=== PATIENT | male | born 1975 | race Two or more races ===

== ENCOUNTER 2019-04-17 20:58 | Emergency (ER) | payer SELFPAY ==
[2019-04-17 21:01] VITALS: BP 117/74
--- NOTE | 2019-04-17 21:12 | ER Report ---
History and Physical Time Seen By MD: 21:10 Hx. of Stated Complaint: DRUNK AND PEEING IN A MOTEL PARKING LOT HPI/ROS CHIEF COMPLAINT: Longterm clearance, alcohol intoxication HISTORY OF PRESENT ILLNESS: This is a 44-year-old male. Unresponsive at this time. Please brought him in for [facility] clearance. When they were called to the area, complaintant had said he had been drinking from a bottle. Urinating in the parking lot. When police arrived he was leaning against a building not responding. No obvious evidence of injuries. Other than smelling of urine, no evidence of vomiting at the time. He is not responding to any my questions right now, not conscious REVIEW OF SYSTEMS: Unable to obtain Unable To Obtain Past Medical: Unable to Obtain/Update Reviewed Nurses Notes: Yes Constitutional Vital Sign - Last 24 Hours 04/17/19 21:01 Temp 97.8 Pulse 68 Resp 18 B/P (MAP) 117/74 Pulse Ox 90 O2 Delivery Room Air Physical Exam General Appearance: Unconscious Eyes: Pupils are equal, round. Reactive to light. Has some injection. ENT: Mucous membranes are moist. Normal oral mucosa. Normal tympanic membranes and canals. Neck: Midline trachea. Respiratory: Lungs are clear to auscultation. Cardiovascular: Regular rate and rhythm. No murmurs, gallops or rubs. Normal peripheral perfusion. Gastrointestinal: Abdomen is soft. Nondistended. Normal active bowel sounds. Neurological: Unconscious, no response to verbal or painful stimuli Skin: Warm and dry. No obvious injuries, lacerations, abrasions Musculoskeletal: No obvious injuries noted or deformities. DIFFERENTIAL DIAGNOSIS: After history and physical exam, differential diagnosis was considered for unresponsive male, likely due to alcohol intoxication but unsure if there is other problems. We'll check labs, IV with fluids, CT scan of the head and cervical spine. Medical Decision Making Data Points Result Diagram: 04/17/19212504/17/192125 Laboratory Hematology Test 04/17/19 21:26 04/17/19 21:31 Red Blood Count 5.77 M/uL (4.00-5.60) Mean Corpuscular Volume 89.8 fL (80.0-96.0) Mean Corpuscular Hemoglobin 30.9 pg (26.0-33.0) Mean Corpuscular Hemoglobin Concent 34.4 g/dL (32.0-36.0) Red Cell Distribution Width 13.3 % (11.5-14.5) Mean Platelet Volume 7.3 fL (7.2-11.1) Neutrophils (%) (Auto) 43.9 % (39.4-72.5) Lymphocytes (%) (Auto) 40.0 % (17.6-49.6) Monocytes (%) (Auto) 10.8 % (4.1-12.4) Eosinophils (%) (Auto) 4.6 % (0.4-6.7) Basophils (%) (Auto) 0.7 % (0.3-1.4) Nucleated RBC Relative Count (auto) 0.1 /100WBC Neutrophils # (Auto) 3.0 K/uL (2.0-7.4) Lymphocytes # (Auto) 2.8 K/uL (1.3-3.6) Monocytes # (Auto) 0.7 K/uL (0.3-1.0) Eosinophils # (Auto) 0.3 K/uL (0.0-0.5) Basophils # (Auto) 0.0 K/uL (0.0-0.1) Nucleated RBC Absolute Count (auto) 0.01 K/uL Sodium Level 148 mmol/L (137-145) Potassium Level 3.3 mmol/L (3.5-5.0) Chloride Level 108 mmol/L (98-107) Carbon Dioxide Level 22 mmol/L (22-30) Blood Urea Nitrogen 5 mg/dl (9-21) Creatinine 0.60 mg/dl (0.66-1.25) Glomerular Filtration Rate Calc > 60.0 Random Glucose 134 mg/dl (75-110) Calcium Level 9.3 mg/dl (8.4-10.2) Total Bilirubin 0.2 mg/dl (0.2-1.3) Aspartate Amino Transf (AST/SGOT) 57 U/L (0-35) Alanine Aminotransferase (ALT/SGPT) 75 U/L (0-56) Alkaline Phosphatase 111 U/L (0-126) Total Protein 8.3 g/dl (6.3-8.2) Albumin 4.7 g/dl (3.5-5.0) Serum Alcohol 484 mg/dl Urine Color Straw Urine Clarity Clear Urine pH 6.0 pH (4.8-9.5) Urine Specific [place] 1.002 Urine Protein Negative mg/dL (NEGATIVE) Urine Glucose (UA) Negative mg/dL (NEGATIVE) Urine Ketones Negative mg/dL (NEGATIVE) Urine Blood Negative (NEGATIVE) Urine Nitrite Negative (NEGATIVE) Urine Bilirubin Negative (NEGATIVE) Urine Urobilinogen Negative mg/dL (0.2-1.9) Urine Leukocyte Esterase Negative (NEGATIVE) Urine RBC None /HPF (0-2/HPF) Urine WBC <1 /HPF (0-5/HPF) Urine Squamous Epithelial Cells None /LPF (NONE-FEW) Urine Bacteria Negative /HPF (NONE-FEW) Urine Mucus None /HPF (NONE-FEW) Urine Opiates Screen Negative Urine Barbiturates Screen Negative Ur Tricyclic Antidepressants Screen Negative Urine Phencyclidine Screen Negative Urine Amphetamines Screen Negative Urine Benzodiazepines Screen Negative Urine Cocaine Screen Negative Urine Cannabinoids Screen Negative Chemistry Test 04/17/19 21:26 04/17/19 21:31 White Blood Count 6.9 k/uL (4.5-11.0) Red Blood Count 5.77 M/uL (4.00-5.60) Hemoglobin 17.8 g/dL (14.0-18.0) Hematocrit 51.8 % (42.0-52.0) Mean Corpuscular Volume 89.8 fL (80.0-96.0) Mean Corpuscular Hemoglobin 30.9 pg (26.0-33.0) Mean Corpuscular Hemoglobin Concent 34.4 g/dL (32.0-36.0) Red Cell Distribution Width 13.3 % (11.5-14.5) Platelet Count 353 K/uL (150-450) Mean Platelet Volume 7.3 fL (7.2-11.1) Neutrophils (%) (Auto) 43.9 % (39.4-72.5) Lymphocytes (%) (Auto) 40.0 % (17.6-49.6) Monocytes (%) (Auto) 10.8 % (4.1-12.4) Eosinophils (%) (Auto) 4.6 % (0.4-6.7) Basophils (%) (Auto) 0.7 % (0.3-1.4) Nucleated RBC Relative Count (auto) 0.1 /100WBC Neutrophils # (Auto) 3.0 K/uL (2.0-7.4) Lymphocytes # (Auto) 2.8 K/uL (1.3-3.6) Monocytes # (Auto) 0.7 K/uL (0.3-1.0) Eosinophils # (Auto) 0.3 K/uL (0.0-0.5) Basophils # (Auto) 0.0 K/uL (0.0-0.1) Nucleated RBC Absolute Count (auto) 0.01 K/uL Glomerular Filtration Rate Calc > 60.0 Calcium Level 9.3 mg/dl (8.4-10.2) Total Bilirubin 0.2 mg/dl (0.2-1.3) Aspartate Amino Transf (AST/SGOT) 57 U/L (0-35) Alanine Aminotransferase (ALT/SGPT) 75 U/L (0-56) Alkaline Phosphatase 111 U/L (0-126) Total Protein 8.3 g/dl (6.3-8.2) Albumin 4.7 g/dl (3.5-5.0) Serum Alcohol 484 mg/dl Urine Color Straw Urine Clarity Clear Urine pH 6.0 pH (4.8-9.5) Urine Specific [place] 1.002 Urine Protein Negative mg/dL (NEGATIVE) Urine Glucose (UA) Negative mg/dL (NEGATIVE) Urine Ketones Negative mg/dL (NEGATIVE) Urine Blood Negative (NEGATIVE) Urine Nitrite Negative (NEGATIVE) Urine Bilirubin Negative (NEGATIVE) Urine Urobilinogen Negative mg/dL (0.2-1.9) Urine Leukocyte Esterase Negative (NEGATIVE) Urine RBC None /HPF (0-2/HPF) Urine WBC <1 /HPF (0-5/HPF) Urine Squamous Epithelial Cells None /LPF (NONE-FEW) Urine Bacteria Negative /HPF (NONE-FEW) Urine Mucus None /HPF (NONE-FEW) Urine Opiates Screen Negative Urine Barbiturates Screen Negative Ur Tricyclic Antidepressants Screen Negative Urine Phencyclidine Screen Negative Urine Amphetamines Screen Negative Urine Benzodiazepines Screen Negative Urine Cocaine Screen Negative Urine Cannabinoids Screen Negative Toxicology Test 04/17/19 21:26 04/17/19 21:31 Serum Alcohol 484 mg/dl Urine Opiates Screen Negative Urine Barbiturates Screen Negative Ur Tricyclic Antidepressants Screen Negative Urine Phencyclidine Screen Negative Urine Amphetamines Screen Negative Urine Benzodiazepines Screen Negative Urine Cocaine Screen Negative Urine Cannabinoids Screen Negative Urinalysis Test 04/17/19 21:31 Urine Color Straw Urine Clarity Clear Urine pH 6.0 pH (4.8-9.5) Urine Specific [place] 1.002 Urine Protein Negative mg/dL (NEGATIVE) Urine Glucose (UA) Negative mg/dL (NEGATIVE) Urine Ketones Negative mg/dL (NEGATIVE) Urine Blood Negative (NEGATIVE) Urine Nitrite Negative (NEGATIVE) Urine Bilirubin Negative (NEGATIVE) Urine Urobilinogen Negative mg/dL (0.2-1.9) Urine Leukocyte Esterase Negative (NEGATIVE) Urine RBC None /HPF (0-2/HPF) Urine WBC <1 /HPF (0-5/HPF) Urine Squamous Epithelial Cells None /LPF (NONE-FEW) Urine Bacteria Negative /HPF (NONE-FEW) Urine Mucus None /HPF (NONE-FEW) EKG/Imaging Imaging EXAMINATION: CT head without IV contrast HISTORY: AMS, EtOH. TECHNIQUE: Axial CT images of the head were obtained from the vertex to the sk ull base without IV contrast, with coronal and sagittal 2D reconstructed images. One of the following dose optimization techniques was utilized in the performance of this exam: Automated exposure control; adjustment of the mA and/or kV according to the patient's size; or use of an iterative reconst ruction technique. Specific details can be referenced in the facility's radiology CT exam operational policy. COMPARISON: None. FINDINGS: The intracranial contents are unremarkable. No CT evidence of intracranial hemorrhage, mass lesion, or acute infarct. No midline shift or extra-axial flu id collections. Peña-white differentiation is maintained. The calvarium is intact. The visualized paranasal sinuses and mastoid air cells are unopacified. IMPRESSION: Unremarkable noncontrast head CT. Report Dictated By: Eugene Stein MD at 04/17/2019 10:11 PM EXAMINATION: CT cervical spine without IV contrast HISTORY: AMS, EtOH TECHNIQUE: Thin axial CT images of the cervical spine were obtained without IV contrast, with sagittal and coronal 2D reconstructed images. One of the following dose optimization techniques was utilized in the performance of this exam: Automated exposure control; adjustment of the mA and/or kV according to the patient's size; or use of an iterative re construction technique. Specific details can be referenced in the facility's radiology CT exam operational policy. COMPARISON: None. FINDINGS: The cervical spine is negative for acute fracture or subluxation. Normal alignment. Vertebral body height and disc spaces are preserved. The dens is intact. The craniocervical junction demonstrates normal alignment. IMPRESSION: Negative cervical spine CT. Report Dictated By: Eugene Stein MD at 04/17/2019 10:16 PM ED Course/Re-evaluation Clinical Indication for ER IV: Hydration, IV Access ED Course 2 liters of normal saline given IV. CT head and c-spine negative. Minor changes in electrolytes. Large alcohol level. Decision to Disposition Date: Apr 17, 2019 Decision to Disposition Time: 22:40 Depart Departure Latest Vital Signs Vital Signs Date Time Temp Pulse Resp B/P (MAP) Pulse Ox O2 Delivery O2 Flow Rate FiO2 04/17/19 21:01 97.8 68 18 117/74 90 Room Air Impression: Primary Impression: Alcohol intoxication Condition: Improved Disposition: [facility] TO RETIREMENT/CORRECTIONAL F Patient Instructions: Alcohol Intoxication (ED) Problem Qualifiers Primary Impression: Alcohol intoxication Complication of substance-induced condition: uncomplicated Qualified Codes: F10.920 - Alcohol use, unspecified with intoxication, uncomplicated SHRUTHI MACIAS MD Apr 17, 2019 21:12
[2019-04-17] MEDS ORDERED: NS(*) 0.9% 1000 ML BAG 1,000 ML IV ONE ×2 (21:20→21:55)
[2019-04-17 21:36] LABS: PLATELET COUNT, AUTOMATED 353 K/uL (150-450)
--- NOTE | 2019-04-17 22:21 | RADIOLOGY IMAGING REPORT ---
[place] [facility] [place] Fortunato Cooper : 11/21/1974 MR: [id number] V: [id number] EXAM DATE: [id number] ORDERING PHYSICIAN: SHRUTHI MACIAS TECHNOLOGIST: [place] [facility] [place] Patient: Fortunato Cooper : 11/21/1974 Visit/Account:[id number] Date of Sevice: 04/17/2019 EXAMINATION: CT head without IV contrast HISTORY: AMS, EtOH. TECHNIQUE: Axial CT images of the head were obtained from the vertex to the skull base without IV c ontrast, with coronal and sagittal 2D reconstructed images. One of the following dose optimization techniques was utilized in the performance of this exam: Autom ated exposure control; adjustment of the mA and/or kV according to the patient's size; or use of an i terative reconstruction technique. Specific details can be referenced in the facility's radiology C T exam operational policy. COMPARISON: None. FINDINGS: The intracranial contents are unremarkable. No CT evidence of intracranial hemorrhage, mass lesion, or acute infarct. No midline shift or extra-axial fluid collections. Peña-white differentiation is maintained. The calvarium is intact. The visualized paranasal sinuses and mastoid air cells are unopacified. IMPRESSION: Unremarkable noncontrast head CT. Report Dictated By: Eugene Stein MD at 04/17/2019 10:11 PM Report E-Signed By: Eugene Stein MD at 04/17/2019 10:16 PM WSN:[id number]
--- NOTE | 2019-04-17 22:23 | RADIOLOGY IMAGING REPORT ---
FACILITY: [facility] PATIENT NAME: Fortunato Cooper : 11/21/1974 MR: [id number] V: [id number] EXAM DATE: [id number] ORDERING PHYSICIAN: SHRUTHI MACIAS TECHNOLOGIST: [place] [facility] [place] Patient: Fortunato Cooper : 11/21/1974 Visit/Account:[id number] Date of Sevice: 04/17/2019 EXAMINATION: CT cervical spine without IV contrast HISTORY: AMS, EtOH TECHNIQUE: Thin axial CT images of the cervical spine were obtained without IV contrast, with sagit pawel and coronal 2D reconstructed images. One of the following dose optimization techniques was utilized in the performance of this exam: Autom ated exposure control; adjustment of the mA and/or kV according to the patient's size; or use of an i terative reconstruction technique. Specific details can be referenced in the facility's radiology C T exam operational policy. COMPARISON: None. FINDINGS: The cervical spine is negative for acute fracture or subluxation. Normal alignment. Vertebral body height and disc spaces are preserved. The dens is intact. The craniocervical junction demonstrates normal alignment. IMPRESSION: Negative cervical spine CT. Report Dictated By: Eugene Stein MD at 04/17/2019 10:16 PM Report E-Signed By: Eugene Stein MD at 04/17/2019 10:17 PM [id number]
== END 2019-04-17 22:58 ==
LOC: EDBD 21:54 → ER 21:54
DX: F10.920 Alcohol use, unspecified with intoxication, uncomplicated (principal); Y90.8 Blood alcohol level of 240 mg/100 ml or more
CPT/HCPCS: 70450; 72125; 80305; 80320; 81001; 85025; 96360; 96361; 99284; J7030; 82040; 82247; 82310; 82374; 82435; 82565; 82947; 84075; 84132; 84155; 84295; 84450; 84460; 84520